=== PATIENT | male | born 1975 | race Caucasian/White ===

== ENCOUNTER 2016-09-10 22:41 | Emergency (ER) | payer OTHER ==
[~2016-09-10] VITALS: Ht 182.8 cm; Wt 81.6 kg
[~2016-09-10 22:41] MED LIST: ALBUTEROL0.09 MG/A2 IH; ALEVE220 MG PO; ANAPROX DS550 MG PO; AUGMENTIN 500 M1 TAB PO; BACTRIM DS 8001 TA1 PO; CATAFLAM50 MG PO; CIPRO500 MG PO; CLARITIN10 MG PO; DAYPRO600 M1 PO; DELTASONE10 MG PO; DONNATAL1 TAB PO; DOXY-D100 MG PO; FIORICET 325 MG1 TAB PO; KEFLEX500 MG PO; MIRALAX POWDER255 GM PO; MOBIC15 MG PO; MOTRIN400 MG PO; MOTRIN800 MG PO; NAPROSYN500 MG PO; NEURONTIN300 MG PO; NKHM; NORFLEX100 MG PO; PENICILLIN VK500 MG PO; PEPCID20 MG PO; PERCOCET 325 MG1 TA2 PO; PERCOGESIC EXTR1 TAB PO; PHENERGAN W/DM120 ML PO; PHENERGAN25 M1 PO; PREDNICOT20 MG PO; ROBAXIN500 MG PO; ROBAXIN750 MG PO; SEPTRA DS 800 M1 TAB PO; SKELAXIN800 MG PO; SOMA250 MG PO; TRAMADOL HCL50 MG PO; TRIMOX500 MG PO; TYLENOL ES500 MG PO; TYLENOL325 M1 PO; TYLENOL500 MG PO; ULTRAM50 MG PO; VICODIN 5/500 505 MG PO; VICODIN ES 7501 TA1 PO; VOLTAREN1% TP; VOLTAREN50 M1 PO; WYMOX500 MG PO; XANAX0.5 MG PO
[2016-09-10] MEDS ORDERED: NAPROSYN500 MG PO (23:08)
== END 2016-09-10 23:52 | disposition home or self-care (01) ==
LOC: ED 22:41
DX: S92.404A Nondisplaced unspecified fracture of right great toe, initial encounter for closed fracture (principal); F17.200 Nicotine dependence, unspecified, uncomplicated; Z88.8 Allergy status to other drugs, medicaments and biological substances; Z88.6 Allergy status to analgesic agent; W22.8XXA Striking against or struck by other objects, initial encounter; Y93.89 Activity, other specified; Y92.9 Unspecified place or not applicable; Y99.9 Unspecified external cause status